=== PATIENT | male | born 1980 | race Caucasian/White ===

== ENCOUNTER 2016-09-16 19:57 | Emergency (ER) | payer MEDICAID ==
[2016-09-16] MEDS ORDERED: CEPHALEXIN 250 MG CAPSULE PO STA (22:31)
[2016-09-16] MEDS ORDERED: MUPIROCIN 2% OINT 22 GM TUBE TOP STA (22:32)
[2016-09-16] MEDS ORDERED: MUPIROCIN 2% OINT 22 GM TUBE TOP ONE (22:33)
[2016-09-16] MEDS ORDERED: CEPHALEXIN 250 MG CAPSULE PO ONE (22:34)
== END 2016-09-16 23:13 | disposition home or self-care (01) ==
DX: L03.113 Cellulitis of right upper limb (principal); F17.200 Nicotine dependence, unspecified, uncomplicated
CPT/HCPCS: 99283; A9270

== ENCOUNTER 2019-05-27 17:19 | Emergency (ER) | payer MEDICAID, OTHER ==
--- NOTE | 2019-05-27 20:11 | ED Physician Documentation ---
History of Present Illness - Stated complaint Stated Complaint: SKIN RASH - Chief complaint Chief Complaint: Wound - Additonal information Additional information: This is a 38-year-old male who presents with a rash. Patient states that he b jenny developing some redness on his left forearm, as well as his left foot around a month ago, he now has a rash and spots on all 4 extremities. It seems to be worse in areas that he gets wet, he works washing cars and the rash is particularly bad in places where he has had holes in his shoes or where his wet sleeve has contacted for long periods of time. He denies fever. He states he had a similar rash in the past that was treated successfully with clotrimazole and mupirocin. However he has tried both of these ointments and has not had improvement. Review of Systems Constitutional: denies: Fever Skin: reports: Rash Immunocompromised: denies: Immunocompromised PD PAST MEDICAL HISTORY - Past Medical History Past Medical History: No - Past Surgical History Past Surgical History: No - Present Medications Home Medications: Ambulatory Orders Medication Instructions Recorded Confirmed Cephalexin [Keflex] 500 mg PO QID 7 Days capsule 09/16/16 Clotrimazole/Betamethasone Dip 1 film TP BID #1 cream..g. 09/16/16 [Clotrimazole-Betamethasone Crm] Mupirocin Calcium [Bactroban] 1 applic TOP BID #1 cream..g. 09/16/16 Clobetasol Propionate 30 gm TOP BID 14 Days #1 tube 05/27/19 Fluconazole 150 mg PO ONCE #1 tablet 05/27/19 - Allergies Allergies/Adverse Reactions: Allergies Allergy/AdvReac Type Severity Reaction Status Date / Time No Known Drug Allergies Allergy Verified 09/16/16 20:06 - Social History Does the pt smoke?: Yes Smoking Status: Current every day smoker Does the pt drink ETOH?: Yes Does the pt have substance abuse?: No PD ED PE NORMAL - Vitals Vital signs reviewed: Yes - General General: Alert and oriented X 3, No acute distress - HEENT HEENT: PERRL, Pharynx benign - Neck Neck: Supple, no meningeal sign - Cardiac Cardiac: RRR - Respiratory Respiratory: No respiratory distress - Abdomen Abdomen: Soft, Non distended - Derm Derm: Other (Over the left foot and the first inter-webspace there is erythema with some scaling, and a few satellite lesions. No blisters or necrosis. No exudate. Over the left forearm there is aPatch of erythema with scaling at the edges, and some crusting centimeter by 7 cm. Over the palm 0 several small lesions which are erythematous, and over the right hand and the fingers and the lateral surfaces, there is erythema and crusting. No purulence seen in any of these wounds.No involvement of the proximal extremities or face) - Extremities Extremities: No deformity - Neuro Neuro: Alert and oriented X 3 - Psych Psych: Normal mood, Normal affect Results - Vitals Vitals: Vital Signs - 24 hr 05/27/19 05/27/19 05/27/19 17:24 18:43 20:47 Temperature 36.9 C 36.9 C Heart Rate 61 91 83 Respiratory 18 18 18 Rate Blood Pressure 128/95 H 145/83 H 135/86 H O2 Saturation 97 99 99 Oxygen O2 Source Room air PD MEDICAL DECISION MAKING - ED course Complexity details: considered differential (Dyshidrotic eczema, contact dermatitis, allergic reaction, chemical burn, fungal infection, bacterial infection.) ED course: On exam patient is well-appearing, he has a rash involves all 4 distal extremities and is focused mostly on the hands and the feet. He has had a rash like this before which resolved with mupirocin and clotrimazole, however this current rash has not responded to these medications. His rash is worse in areas where he has exposure to water. Overall I think the rash is possibly dyshidrotic eczema, though on his foot there are some satellite lesions that I am concerned for either fungal infection or fungal superinfection on top of his possible eczema. I do not see signs of an obvious bacterial infection. Syphilis is also possible but less likely based on history. I discussed that based on his exam, we should try treating with steroids as well as antifungals, but he is to carefully watch for any signs of worsening such as spreading of the rash, fever, or any other concerning symptoms whatsoever. If he has any worsening or new symptoms he will return to the emergency department. He is given a dose of fluconazole here, and is prescribed a course of steroid cream. I also recommended close follow-up with his PCP, and a dairy quality assurance officer if possible. He has the available appointment for dairy quality assurance officer in early June. Departure - Departure Disposition: Home, Self Care Clinical Impression: Rash Condition: Good Follow-Up: Your,PCP [Other] Prescriptions: Clobetasol Propionate 30 gm TOP BID 14 Days #1 tube Fluconazole 150 mg PO ONCE #1 tablet Comments: You were seen today for a rash over your arms, as well as your feet. I am concerned that this may be dyshidrotic eczema, you may also have a fungal infection. Please take the antifungal as prescribed, and also apply the steroid cream to the affected areas twice a day for the next 2 weeks. If you have any spreading of the rash, fever, or any other worsening, Please return to the emergency department. If it is improving, please follow-up with your primary care provider and your dairy quality assurance officer. Discharge Date/Time: 05/27/19 21:18
[2019-05-27 20:55] VITALS: BP 135/86
[2019-05-27] MEDS ORDERED: FLUCONAZOLE 100 MG TABLET PO STA (21:00)
== END 2019-05-27 21:18 | disposition home or self-care (01) ==
LOC: ED 17:19
DX: R21 Rash and other nonspecific skin eruption (principal); F17.200 Nicotine dependence, unspecified, uncomplicated
CPT/HCPCS: 1040M; 99282; 99284; A9270

== ENCOUNTER 2019-06-03 13:04 | Emergency (ER) | payer OTHER ==
--- NOTE | 2019-06-03 13:29 | ED Physician Documentation ---
History of Present Illness - Stated complaint Stated Complaint: F/U SKIN ISSUES - Chief complaint Chief Complaint: General - Additonal information Additional information: This is a 38-year-old male who I recently saw, who returns with some skin issues. Patient has had rash on his hands and feet ongoing for several months, he has had this in the past and was reportedly treated with Keflex and then it improved. 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 He has had red spots on his side and on the soles of his feet, as well as scaling over the dorsal aspect of his hands and the first inter-webspace in the left foot. He was seen recently in the emergency department, he was prescribed fluticasone for potential fungal superinfection, as well as steroids for may have been dyshidrotic eczema, he states that the steroids he had some improvement of the rash in his wrist, however he is getting new spots spreading up his arms, and also on his back. He has some painful lesions on his bilateral hands. He is sexually active with his only, has only been active with female partners. He denies IV drug use, or any drug use other than occasional marijuana In the past. No fever, weight loss, or lesions. He did note 1 red spot on his penis, which started after the spots on his hand, he denies any history of ulcers on his penis that he has noticed. Review of Systems Constitutional: denies: Fever Throat: denies: Dental pain / toothache, Oral lesions / sores Cardiac: denies: Chest pain / pressure Respiratory: denies: Dyspnea Skin: reports: Rash PD PAST MEDICAL HISTORY - Past Surgical History Past Surgical History: No - Present Medications Home Medications: Ambulatory Orders Medication Instructions Recorded Confirmed Cephalexin [Keflex] 500 mg PO QID 7 Days capsule 09/16/16 Clotrimazole/Betamethasone Dip 1 film TP BID #1 cream..g. 09/16/16 [Clotrimazole-Betamethasone Crm] Mupirocin Calcium [Bactroban] 1 applic TOP BID #1 cream..g. 09/16/16 Clobetasol Propionate 30 gm TOP BID 14 Days #1 tube 05/27/19 Fluconazole 150 mg PO ONCE #1 tablet 05/27/19 Clobetasol 0.05% Oint [Temovate 1 applic TOP BID #30 g 06/03/19 0.05% Oint] Triamcinolone 0.1% Oint [Kenalog 1 applic TOP BID #30 g 06/03/19 0.1% Oint] predniSONE [Prednisone] 40 mg PO DAILY #10 tablet 06/03/19 - Allergies Allergies/Adverse Reactions: Allergies Allergy/AdvReac Type Severity Reaction Status Date / Time No Known Drug Allergies Allergy Verified 06/03/19 13:22 - Social History Does the pt smoke?: Yes Smoking Status: Current every day smoker Does the pt drink ETOH?: Yes Does the pt have substance abuse?: No PD ED PE NORMAL - Vitals Vital signs reviewed: Yes - General General: Alert and oriented X 3 - HEENT HEENT: Atraumatic, Pharynx benign - Neck Neck: Supple, no meningeal sign - Cardiac Cardiac: Other (RRR on my exam) - Derm Derm: Other (Over the hands there are scattered erythematous papules, some of which have superficial scaling. Over the left wrist there is a 3 cm x 4 cm patch of pink skin where he used to have an erythematous patch, states this is been improving with the steroid cream. There also scattered papules and erythematous scaly plaques over the feet, and more discrete erythematous papules without scaling over his back and forearms. There are no mucosal lesions. The face is spared.) - Neuro Neuro: Alert and oriented X 3 Results - Vitals Vitals: Vital Signs - 24 hr 06/03/19 06/03/19 13:21 15:46 Temperature 36.6 C 36.4 C L Heart Rate 104 H 83 Respiratory 20 18 Rate Blood Pressure 139/82 H 112/75 O2 Saturation 97 99 Oxygen O2 Source Room air - Labs Labs: Laboratory Tests 06/03/19 06/03/19 06/03/19 13:51 13:51 13:51 WBC 9.1 RBC 4.27 L Hgb 14.7 Hct 41.9 L MCV 98.1 H MCH 34.4 H MCHC 35.1 RDW 11.5 L Plt Count 238 MPV 9.0 Neut # (Auto) 6.8 H Lymph # (Auto) 1.4 L [place] # (Auto) 0.8 Eos # (Auto) 0.1 Baso # (Auto) 0.1 Absolute Nucleated RBC 0.00 Nucleated RBC % 0.0 ESR 5 Sodium 137 Potassium 3.7 Chloride 96 L Carbon Dioxide 23 Anion Gap 18.0 H BUN 6 Creatinine 0.6 Estimated GFR (MDRD) 151 Glucose 88 Calcium 9.3 Total Bilirubin 0.5 AST 43 H ALT 47 Alkaline Phosphatase 68 C-Reactive Protein 1.5 H Total Protein 8.5 H Albumin 4.8 Globulin 3.7 Albumin/Globulin Ratio 1.3 Lipase 25 PD MEDICAL DECISION MAKING - ED course Complexity details: considered differential (Syphilis, dyshidrotic eczema, id reaction, psoriasis) ED course: This is a very pleasant 38-year-old male who returns for evaluation of a rash which is been ongoing for over 6 weeks. Some areas of his rash improved with steroids, but he has new erythematous spots over his arms and some on his back as well. CBC is unremarkable, CMP shows a slightly elevated C-reactive protein at 1.5, and a borderline elevated AST at 43, otherwise unremarkable. Patient appears very low risk for HIV or syphilis, but given his persistent rash IgG for syphilis and HIV were drawn. I was able to contact [facility] dermatology, they stated they do not have any appointments available in the next month, but in reviewing the case they would like him to use a high potency steroid twice a day on his hands under occlusion, and triamcinolone cream on the body. They also recommend that he avoid washing his hands as much as possible. Patient states that he washes his hands frequently. I discussed the treatment recommendations with the patient, and prescribed him clobetasol, triamcinolone, and a short burst of oral steroids as well given the amount. I also discussed strict return precautions for any signs of infection, or if the rash is worsening instead of improving with the treatment. Patient agreed with this plan and was discharged home. He has dermatology follow-up in June, he can call and try to get this bumped up, though this may be diff icult. Departure - Departure Disposition: Home, Self Care Clinical Impression: Rash Condition: Good Prescriptions: Clobetasol 0.05% Oint [Temovate 0.05% Oint] 1 applic TOP BID #30 g predniSONE [Prednisone] 40 mg PO DAILY #10 tablet Triamcinolone 0.1% Oint [Kenalog 0.1% Oint] 1 applic TOP BID #30 g Comments: You were seen today for rash and hands that is spreading diffusely. This appears to be dyshidrotic eczema, please try the steroid pills. Use the clobetasol cream on your hands twice a day and Wear gloves over top of the cream at night. Use the triamcinolone cream for the rash on her body. You may take benadryl or hydroxizine for itching at night. 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 Avoid washing your hands frequently, as this dries out your hands and makes you more prone to rash. Discharge Date/Time: 06/03/19 16:18
[2019-06-03 14:05] LABS: BASOPHILS # (AUTO) 0.1 10^3/uL (0.0-0.1); BASOPHILS % (AUTO) 0.5 %; EOSINOPHILS # (AUTO) 0.1 10^3/uL (0.0-0.7); EOSINOPHILS % (AUTO) 0.7 %; HGB - HEMOGLOBIN 14.7 g/dL (14.0-18.0); LYMPHOCYTES # (AUTO) 1.4 10^3/uL (1.5-3.5); LYMPHOCYTES % (AUTO) 15.6 %; MEAN CORPUSCULAR HEMOGLOBIN 34.4 pg (27.0-31.0); MEAN CORPUSCULAR HGB CONC 35.1 g/dL (32.0-36.0); MEAN CORPUSCULAR VOLUME 98.1 fL (80.0-94.0); MONOCYTES # (AUTO) 0.8 10^3/uL (0.0-1.0); MONOCYTES % (AUTO) 8.5 %; NEUTROPHILS # (AUTO) 6.8 10^3/uL (1.5-6.6); NEUTROPHILS % (AUTO) 74.4 %; PLT - PLATELET COUNT 238 10^3/uL (130-450); RED BLOOD COUNT 4.27 10^6/uL (4.70-6.10); RED CELL DISTRIBUTION WIDTH 11.5 % (12.0-15.0); WHITE BLOOD COUNT 9.1 x10^3/uL (4.8-10.8)
[2019-06-03 14:26] LABS: ALBUMIN 4.8 g/dL (3.2-5.5); ALBUMIN/GLOBULIN RATIO 1.3 (1.0-2.2); BILIRUBIN,TOTAL 0.5 mg/dL (0.2-1.0); CALCIUM 9.3 mg/dL (8.5-10.3); CREATININE 0.6 mg/dL (0.6-1.2); CRP - C-REACTIVE PROTEIN 1.5 mg/dL (0-1.0); TOTAL PROTEIN 8.5 g/dL (6.7-8.2)
[2019-06-03] MEDS ORDERED: predniSONE 20 MG TABLET PO STA (15:36)
[2019-06-03 15:47] VITALS: BP 112/75
[2019-06-04 14:12] LABS: HIV AG/AB 4TH GEN NON-REACTIVE (NON-REACTIVE)
== END 2019-06-03 16:18 | disposition home or self-care (01) ==
LOC: ED 13:04
DX: R21 Rash and other nonspecific skin eruption (principal); F17.200 Nicotine dependence, unspecified, uncomplicated
CPT/HCPCS: 36415; 80053; 83690; 85025; 85651; 86140; 86780; 87389; 99283; 99284; J7512; 87491; 87591; 87661